=== PATIENT | female | born 1970 | race Caucasian/White ===

== ENCOUNTER 2020-03-15 12:19 | Day surgery (SDC) | payer OTHER ==
[~2020-03-15] VITALS: Ht 157.5 cm; Wt 81.6 kg
[2020-03-15] MEDS ORDERED: NP THYROID90 MG PO (12:39)
--- NOTE | 2020-03-15 13:08 | NUR ---
PT RESTING IN BED WATCHING TV. DENIES ANY NEEDS AT THIS TIME. CALL LIGHT WITHIN REACH.
--- NOTE | 2020-03-15 14:20 | NUR ---
03/15/20 1420 Melissa Gómez 1410 PT ARRIVED IN PACU SLEEPY WITH NO C/O'S. ABD SOFT.
--- NOTE | 2020-03-17 11:35 | PATH ---
[facility] [address] [place], [place] [address] Signed SPECIMEN(S): A RIGHT TRANSVERSE POLYP SPECIMEN SOURCE: A. RIGHT TRANSVERSE POLYP CLINICAL HISTORY: Pre: Colon screen. Post: Diverticulosis, polyp x 1. MICROSCOPIC DESCRIPTION: Histologic sections of all submitted blocks are examined by light microscopy. These findings, together with the gross examination, support the pathologic diagnosis. FINAL PATHOLOGIC DIAGNOSIS: Colon, right transverse, polyp, polypectomy: - Tubular adenoma. - Negative for high-grade dysplasia or malignancy. NAL:caw:C2NR GROSS DESCRIPTION: The specimen, labeled "ST, right transverse polyp," is received in formalin and consists of four hernandes soft tissue fragments that measure 0.2 cm in greatest dimension. The specimen is entirely submitted in cassette (A1). JS (under the direct supervision of a pathologist) The Gross Description was prepared using a voice recognition system. The report was reviewed for accuracy; however, sound-alike word errors, addition and/or deletions may occur. If there is any question about this report, please contact Client Services. PERFORMING LABORATORY: The technical component was performed by [facility], [address] [place] [id number] (Assistant Scientist: Stacie Walsh MD; CLIA# [id number]). [facility], [address] [place] [id number] (CLIA# [id number]). Diagnostician: Katherine Yee MD Pathologist Electronically Signed 03/17/2020 PATIENT NAME: KE WALKER PATHOLOGY DATE OF : 66 REPORT #: [id number] PHYSICIAN: HEIDI PATHOLOGY PCP: TERRY OLIVIA PAC REPORT IS CONFIDENTIAL AND NOT TO BE RELEASED WITHOUT AUTHORIZATION [address] [address] Signed Copies: ~ PATIENT NAME: KE WALKER PATHOLOGY DATE OF : 66 REPORT #: [id number] PHYSICIAN: HEIDI PATHOLOGY PCP: TERRY OLIVIA PAC REPORT IS CONFIDENTIAL AND NOT TO BE RELEASED WITHOUT AUTHORIZATION
--- NOTE | 2020-03-17 18:24 | OR ---
[facility] [address] [place], [place] [address] Signed DATE OF OPERATION: 03/15/2020 SURGEON: Xuan Du MD PREOPERATIVE DIAGNOSIS: Colon screening. POSTOPERATIVE DIAGNOSES: 1. Extensive sigmoid and left-sided diverticulosis with scattered diverticula proximally. 2. Very small polyp of right transverse colon (excised). PROCEDURE: Total colonoscopy to cecum with cold morcellation polypectomy x1. ANESTHESIA: Intravenous sedation; fentanyl 150 mcg, Versed 6 mg. INDICATIONS: This 49-year-old white woman is a patient of Terry Olivia and referred for screening colonoscopy. She has had no symptoms of bleeding, diarrhea, or constipation. She has undergone cholecystectomy approximately [address] Raciel Sloan. She has no family history of colon cancer or inflammatory bowel disease. She is admitted at this time to undergo colonoscopy. She understands the risks of bleeding, infection, perforation, and so on. FINDINGS: The prep was excellent. Complete colonoscopy was undertaken to the cecum without question. Numerous diverticula were seen in the sigmoid and left colon and scattered diverticula more proximally. There was a small polyp possibly adenomatous at the right transverse colon, which was excised completely with cold morcellation technique. There were no other findings of concern. Good visualization of the ileocecal valve and appendiceal orifice were noted. DESCRIPTION OF PROCEDURE: The patient was brought to the endoscopy suite and placed in lateral decubitus position, given intravenous sedation to the point of slurred speech and nystagmus. Digital rectal examination was normal. An Olympus video colonoscope was passed in the rectum and manipulated throughout the colon, noting numerous diverticula of sigmoid and left colon. The scope was ultimately Electronically Signed By: XUAN DU MD 03/17/20 1824 PATIENT NAME: KE WALKER OPERATIVE REPORT DATE OF : 66 REPORT #: [id number] PHYSICIAN: XUAN DU MD PCP: TERRY OLIVIA PAC REPORT IS CONFIDENTIAL AND NOT TO BE RELEASED WITHOUT AUTHORIZATION [facility] [address] [place], [place] [address] Signed advanced to the cecum. The ileocecal valve and appendiceal orifice were normal. The scope was withdrawn from that point and examination throughout showed no sign of abnormality until approximately the right transverse colon where a small polyp was noted. This was excised with cold morcellation polypectomy technique completely. The scope was further withdrawn. Scattered diverticula noted in the transverse colon and distally as well. There were no other abnormality, specifically no more polyps or other abnormalities. Retroflexed view of the rectum was normal. Scope was removed. The patient was taken to the recovery room in good condition. CONCLUDING DIAGNOSES: 1. Diverticulosis. 2. Very small polyp right transverse colon (excised). PLAN: Recommend repeat colonoscopy in 10 years if the polyp is hyperplastic, if adenoma is 5 years. Recommend high-fiber diet as well as a diverticular the patient booklet. She will return to the ongoing care of Terry Olivia, ferny. MD SILVER Martinez/MING /[id number] cc: GITA Suresh Copies: ~ Electronically Signed By: XUAN DU MD 03/17/20 1824 PATIENT NAME: KE WALKER OPERATIVE REPORT DATE OF : 66 REPORT #: [id number] PHYSICIAN: XUAN DU MD PCP: TERRY OLIVIA PAC REPORT IS CONFIDENTIAL AND NOT TO BE RELEASED WITHOUT AUTHORIZATION
== END 2020-03-15 14:55 | disposition home or self-care (01) ==
LOC: OPS 12:19 → DS 12:20 → OPS 14:00 → DS 14:00 → OPS 14:55
PROVIDERS: Surgery
PROC: 0DBL8ZZ Excision of Transverse Colon, Via Natural or Artificial Opening Endoscopic (ICD-10-PCS; principal; 2020-03-15 14:00)
DX: Z12.11 Encounter for screening for malignant neoplasm of colon (principal); D12.3 Benign neoplasm of transverse colon; K57.30 Diverticulosis of large intestine without perforation or abscess without bleeding; I10 Essential (primary) hypertension; K21.9 Gastro-esophageal reflux disease without esophagitis; E03.9 Hypothyroidism, unspecified; F17.210 Nicotine dependence, cigarettes, uncomplicated; Z91.09 Other allergy status, other than to drugs and biological substances; Z90.49 Acquired absence of other specified parts of digestive tract; Z90.710 Acquired absence of both cervix and uterus
CPT/HCPCS: 99153; G0500; J2250; J3010